=== PATIENT | female | born 1995 | race Hispanic/Latino ===

== ENCOUNTER 2021-03-30 08:36 | Emergency (ER) | payer BC ==
[~2021-03-30] VITALS: Ht 162.6 cm; Wt 77.1 kg
[2021-03-30] MEDS ORDERED: 0.9%NACL 1000ML 1,000 ML IV ONE (09:00)
[2021-03-30] MEDS ORDERED: FAMOTIDINE 20MG VIAL IV ONE (09:01)
[2021-03-30 09:13] LABS: BASOPHILS % (AUTO) 0.1 % (0.0-5.0); EOSINOPHILS % (AUTO) 0.3 % (0.0-8.0); HEMATOCRIT 40.8 % (36-48); LYMPHOCYTES % (AUTO) 3.8 % (21.0-51.0); MEAN CORPUSCULAR HEMOGLOBIN 29.5 pg (27.0-33.0); MEAN CORPUSCULAR HGB CONC 34.6 g/dL (32.0-36.0); MEAN CORPUSCULAR VOLUME 85.4 fL (79-99); MONOCYTES % (AUTO) 4.4 % (3.0-13.0); PLATELET COUNT (AUTO) 260 K/uL (130-400); RED BLOOD CELL COUNT(AUTO) 4.78 MIL/uL (4.00-5.50); RED CELL DISTRIBUTION WIDTH 11.7 % (11.0-15.5); WHITE BLOOD COUNT (AUTO) 13.4 K/uL (4.8-10.8)
[2021-03-30 09:15] LABS: APPEARANCE,URINE Cloudy (CLEAR); BILIRUBIN,URINE Negative (NEGATIVE); COLOR,URINE Yellow (YELLOW); GLUCOSE, URINE (UA) Negative (NEGATIVE); KETONES,URINE Negative (NEGATIVE); LEUKOCYTE ESTERASE ,URINE Small (NEGATIVE); NITRATE,URINE Positive (NEGATIVE); OCCULT BLOOD,URINE Small (NEGATIVE); PROTEIN,URINE Negative (NEGATIVE)
[2021-03-30 09:18] LABS: CREATININE 0.7 mg/dL (0.5-1.5); POTASSIUM 3.8 mmol/L (3.5-5.1)
[2021-03-30 09:18] LABS: HCG,QUAL RESULT NEGATIVE (NEGATIVE)
[2021-03-30 09:29] LABS: BACTERIA,URINE Many /HPF (None Seen)
[2021-03-30] MEDS ORDERED: PROCHLORPERAZINE 10MG/2ML INJ IV ONE (09:30)
[2021-03-30] MEDS ORDERED: KETOROLAC 15MG/ML VIAL (15MG/ML) IV ONE (09:30)
[2021-03-30 09:41] LABS: ALBUMIN 3.7 g/dL (3.5-5.0); BILIRUBIN,TOTAL 0.6 mg/dL (0.2-1.0); TOTAL PROTEIN, SERUM 7.6 g/dL (6.0-8.3)
[2021-03-30] MEDS ORDERED: CEFTRIAXONE 1G VIAL IVP SCH (12:30)
[2021-03-30] MEDS ORDERED: CEPH500B PO (12:49)
[2021-03-30] MEDS ORDERED: FAMO-136 PO (12:49)
[2021-03-30 13:26] VITALS: BP 103/61
== END 2021-03-30 13:27 | disposition home or self-care (01) ==
LOC: EDH 08:36
DX: K29.70 Gastritis, unspecified, without bleeding (principal); N39.0 Urinary tract infection, site not specified; Z79.1 Long term (current) use of non-steroidal anti-inflammatories (NSAID)
CPT/HCPCS: 36415; 80053; 81001; 81025; 83690; 84702; 85025; 87077; 87088; 87186; 96361; 96374; 96375; 99284; J0696; J0780; J1885; J3490; J7030

== ENCOUNTER 2021-05-31 10:50 | Emergency (ER) | payer BC ==
[~2021-05-31] VITALS: Ht 162.6 cm; Wt 77.1 kg
[~2021-05-31 10:50] MED LIST: CEPH500B PO; FAMO-136 PO
[2021-05-31 11:07] VITALS: BP 127/70
[2021-05-31] MEDS ORDERED: GENTAMICIN SULFATE 0.3% 5ML DROPS OD SCH (12:00)
[2021-05-31] MEDS ORDERED: FLUORESCEIN SODIUM 1 STRIP STRIP OP SCH (12:00)
== END 2021-05-31 13:13 | disposition home or self-care (01) ==
LOC: EDH 10:50
DX: S05.01XA Injury of conjunctiva and corneal abrasion without foreign body, right eye, initial encounter (principal); X58.XXXA Exposure to other specified factors, initial encounter; Y93.89 Activity, other specified; Y92.89 Other specified places as the place of occurrence of the external cause; Y99.8 Other external cause status